=== PATIENT | female | born 1995 | race African-American/Black ===

== ENCOUNTER 2021-01-19 17:22 | Emergency (ER) | payer MEDICAID, SELFPAY ==
[2021-01-19 17:24] VITALS: BP 182/98; PULSE 105; RESP 18; TEMP 36.3; O2SAT 100
--- NOTE | 2021-01-19 17:30 | PC.NURSE ---
Pt unable to give urine sample at this time. Gave pt a cup of water to drink
--- NOTE | 2021-01-19 17:45 | ED.FEMALEGU ---
HPI - Female Genitourinary General Chief complaint: Urogenital-Female Stated complaint: STI Testing Request Time Seen by Provider: 01/19/21 17:32 Source: patient Mode of arrival: ambulatory Limitations: no limitations History of Present Illness HPI Narrative: This is a 25 year old female that presents to the ER for vulvar lesions. Reports they have been present for the last 2 days. Reports they are painful. Reports she would like to be tested for STDs. She tried to use Monistat without relief. Denies fever, dysuria or vomiting. Related Data Allergies Allergy/AdvReac Type Severity Reaction Status Date / Time No Known Allergies Allergy Verified 01/19/21 17:33 Review of Systems Review of Systems: CONSTITUTIONAL: Denies fever SKIN: Reports rash and itching. GENITOURINARY: Denies dysuria or hematuria. All systems reviewed & are unremarkable except as noted in HPI and below PMFSH Past Medical History Medical History (Updated 01/19/21 @ 19:59 by Key Munoz PA-C) No active medical problems Social History Social History (Updated 01/19/21 @ 17:48 by Key Munoz PA-C) Substance use: never Exam Narrative: GENERAL: Well-appearing, well-nourished, and in no acute distress. HEAD: Normocephalic, atraumatic. EYES: EOMI. CHEST: Clear to auscultation. No respiratory distress. No wheezes rales or rhonchi HEART: Regular rate and rhythm. No murmur heard. Normal peripheral pulses. EXTREMITIES: Normal range of motion. No edema. SKIN: Warm, dry, no rash. NEURO: No focal deficits. Alert and oriented x3. PSYCH: Normal mood and affect PELVIC: Ulcerations on erythematous base in the vulva. Mild amount of white discharge in the vaginal vault. Normal-appearing cervix. No cervical motion tenderness Course Vital Signs Vital signs: Vital Signs Temperature 97.3 F L 01/19/21 17:24 Pulse Rate 105 H 01/19/21 17:24 Respiratory Rate 18 01/19/21 17:24 Blood Pressure 182/98 H 01/19/21 17:24 Pulse Oximetry 100 01/19/21 17:24 Temperature 97.3 F L 01/19/21 17:24 Pulse Rate 94 01/19/21 19:25 Respiratory Rate 17 01/19/21 19:25 Blood Pressure 137/89 01/19/21 19:25 Pulse Oximetry 100 01/19/21 19:25 MDM - Female Genitourinary MDM Narrative Medical decision making narrative: Patient presents to the emergency department for a rash noted in the genital region over the last couple of days. The rash is painful. On exam it is consistent with a probable herpes flare. UA with 7-9 white blood cells, but many squamous epithelial cells. This will be sent for culture. Bedside test is negative. Chlamydia, gonorrhea and general genital culture were sent. Patient would not like to be presumptively treated and would like to follow-up for further results. Trichomonas was negative. Patient will be treated with antiviral for herpes flare. She is to follow-up with gynecology. She was given warnings to return to the ER Lab Data Attestation: I reviewed the patient's lab results. Labs: Lab Results 01/19/21 01/19/21 01/19/21 Range/Units 18:06 18:19 18:19 Urine Color (Yellow) Urine Appearance (Clear) Urine pH (5.0-9.0) Ur Specific [place] (1.001-1.035) Urine Protein (Negative) mg/dL Urine Glucose (UA) (Negative) mg/dL Urine Ketones (Negative) mg/dL Ur Blood (Man) (Negative) Urine Nitrate (Negative) Urine Bilirubin (Negative) Urine Urobilinogen (<2.0) mg/dL Leukocyte Esterase Rfl (Negative) SATHISH/UL Urine RBC (0-2) /hpf Urine WBC /hpf Ur Squamous Epith Cells (Few) /hpf Urine Bacteria /hpf Urine Mucus /lpf C.trachomatis RNA (TMA) Pending Herpes Simplex Culture Pending N.gonorrhoeae RNA (TMA) Pending Trichomonas Direct ID Negative (Negative) 01/19/21 Range/Units 19:28 Urine Color Yellow (Yellow) Urine Appearance Cloudy H (Clear) Urine pH 6.0 (5.0-9.0) Ur Specific Gravit
--- NOTE | 2021-01-19 18:44 | PC.NURSE ---
Pt states she is still unable to give urine sample. Pt requested a second cup of water. Informed pt that we will have to straight cath pt in order to get urine if she is still unable to give sample. Pt states she understands
--- NOTE | 2021-01-19 19:03 | PC.NURSE ---
This RN informed pt that we will have to straight cath her to get urine. Pt states just give me another cup of water and 10 minutes and I will try again. I have the urge but i just cant go .
--- NOTE | 2021-01-19 19:24 | PC.NURSE ---
Assumed care of pt at this time. Pt is alert and upright on stretcher. Discussed POC.
[2021-01-19 19:25] VITALS: BP 137/89; PULSE 94; RESP 17; O2SAT 100
[2021-01-19 19:47] LABS: Add Urine Microscopic? YES; Appearance Urine Cloudy (Clear); Bacteria Urine Trace /hpf; Bilirubin Urine Negative (Negative); Blood Urine Negative (Negative); Color Urine Yellow (Yellow); Glucose Urine UA Negative (Negative); Ketones Urine 2+ mg/dL (Negative); Leukocyte Esterase Ur 3+ LEU/UL (Negative); Mucus Urine Heavy /lpf; Nitrate Urine Negative (Negative); Protein Urine 1+ mg/dL (Negative); Squamous Epithelial Cell Urine Many /hpf (Few)
[2021-01-19 20:15] VITALS: BP 115/65; PULSE 99; RESP 16; O2SAT 100
== END 2021-01-19 20:16 | disposition home or self-care (01) ==
PROVIDERS: Physician Assistant; Emergency Provider Emergency Medicine
DX: N90.89 Other specified noninflammatory disorders of vulva and perineum (principal)
CPT/HCPCS: 81001; 81025; 87070; 87086; 87088; 87255; 87491; 87591; 87808; 99284

== ENCOUNTER 2021-02-14 14:59 | Emergency (ER) | payer MEDICAID, SELFPAY ==
[2021-02-14 15:10] VITALS: BP 151/82; PULSE 98; RESP 16; TEMP 37.7
--- NOTE | 2021-02-14 16:09 | ED.GENADULT ---
HPI - General Adult General Chief complaint: Urogenital-Female Stated complaint: yeast infection /std testing Source: patient Mode of arrival: ambulatory Limitations: no limitations History of Present Illness HPI narrative: This is a 25 year old female that presents to the ER for vulvar lesions that have been present since yesterday although initially appeared on 01/17/21. Reports area was itching so she scratched the area which she believes this to be the cause but wanted to be sure . She was STD tested on 01/19/21 at the ER and dx with HSV. She was prescribed an antiviral at that visit. [facility] time just to be sure. All STD testing was negative at that time as well. She denies using condoms for STD prophylaxis. Related Data Home Medications Medication Instructions Recorded Confirmed No Home Medications 02/14/21 02/14/21 Allergies Allergy/AdvReac Type Severity Reaction Status Date / Time No Known Allergies Allergy Verified 02/14/21 15:20 Review of Systems Review of Systems: pertinent negatives: fever, chills, sweats, change in appetite, poor p.o. intake, recent weight loss/gain, back pain, flank pain, dysuria, hematuria, urinary frequency, urinary urgency, , skin rash, painful intercourse, abdominal pain, nausea, vomiting, diarrhea, constipation, shortness of breath, chest pain, heart palpitations, and heart murmur PMFSH Past Medical History Medical History (Updated 02/14/21 @ 16:24 by SHOBHA MongeP, ) No active medical problems Social History Social History (Updated 01/19/21 @ 17:48 by Key Munoz PA-C) Substance use: never Exam Narrative: GENERAL: Well-appearing, well-nourished, and in no acute distress. HEAD: Normocephalic, atraumatic. EYES: EOMI. CHEST: Clear to auscultation. No respiratory distress. No wheezes rales or rhonchi HEART: Regular rate and rhythm. No murmur heard. Normal peripheral pulses. EXTREMITIES: Normal range of motion. No edema. SKIN: Warm, dry, no rash. NEURO: No focal deficits. Alert and oriented x3. PSYCH: Normal mood and affect PELVIC: Small lesion consistent with abrasion noted to left side of base of vulva. Small amount of white discharge in the vaginal vault. 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 Course Vital Signs Vital signs: Vital Signs Temperature 99.8 F H 02/14/21 15:10 Pulse Rate 98 02/14/21 15:10 Respiratory Rate 16 02/14/21 15:10 Blood Pressure 151/82 H 02/14/21 15:10 Temperature 99.8 F H 02/14/21 15:10 Pulse Rate 98 02/14/21 15:10 Respiratory Rate 16 02/14/21 15:10 Blood Pressure 151/82 H 02/14/21 15:10 Due to an elevated blood pressure, I had a detailed discussion with the patient and/or guardian regarding the need for follow-up with their primary care provider within the next 3-4 days. Patient verbalized understanding and agreed. Medical Decision Making Differential Diagnosis Differential Diagnosis: Chlamydia, gonorrhea, trichomonas, HIV, HSV, cellulitis, abrasion, Medical Records Medical records reviewed: Yes I reviewed the external patient's medical records. Vital Signs Vital Signs: Vital Signs Temperature 99.8 F H 02/14/21 15:10 Pulse Rate 98 02/14/21 15:10 Respiratory Rate 16 02/14/21 15:10 Blood Pressure 151/82 H 02/14/21 15:10 Temperature 99.8 F H 02/14/21 15:10 Pulse Rate 98 02/14/21 15:10 Respiratory Rate 16 02/14/21 15:10 Blood Pressure 151/82 H 02/14/21 15:10 Critical Care Time Critical Care Time Critical Care Time: No Discharge Plan Discharge Clinical Impression: Abrasion of vulva Qualifiers: Encounter type: initial encounter Qualified Code(s): S30.814A - Abrasion of vagina and vulva, initial encounter Patient Disposition: Home, Self-Care Condition: Stable Additional Instructions: See discharge instructions for detailed information. If you have been prescribed a medication today, be sure to take/u
== END 2021-02-14 16:30 | disposition home or self-care (01) ==
PROVIDERS: Emergency Provider Nurse Practitioner Family
DX: S30.814A Abrasion of vagina and vulva, initial encounter (principal); X58.XXXA Exposure to other specified factors, initial encounter
CPT/HCPCS: 99211; G0463